=== PATIENT | female | born 1945 | race Caucasian/White ===

== ENCOUNTER 2017-03-24 21:04 | Inpatient (IN) | payer MEDICARE, OTHER ==
[~2017-03-24] VITALS: Ht 152.4 cm; Wt 73.9 kg
--- NOTE | 2017-03-24 21:10 | NUR ---
TO BED 3 BIB PARAMEDICS FROM [facility] C/O SOB 40 MINS HOSPICE MUSIC THERAPY, 02 91%. PT WAS GIVEN HHN TX BY EMS HOSPICE MUSIC THERAPY. 02 SAT 98% ON 2L/NC. PT NONVERBAL, AAOX1, NO ACUTE DISTRESS NOTED, RESP EVEN AND UNLABORED. RHONCHI HEARD BILATERALLY ON AUSCULTATION. PLACE PT ON CARDAIC MONITORING, CONTINUOUS POX, O2@2L/NC. SL 20G TO L HAND. PENDING ER MD MARTINEZ.
[2017-03-24] MEDS ORDERED: IPRATROPIUM NEB FS 0.5 MG/2.5 ML AMPUL.NEB NEB ONE (22:30)
[2017-03-24] MEDS ORDERED: ALBUTEROL FS 2.5 MG/3 ML VIAL.NEB CONTNEB ONE (22:30)
[2017-03-24] MEDS ORDERED: LEVOFLOXACIN 750 MG /D5W 150ML 150 ML IV ONE (22:30)
[2017-03-24 22:37] LABS: BASOPHILS # (AUTO) 0.7 /CMM (0.0-0.2); BASOPHILS % (AUTO) 4.5 % (0.0-2.0); EOSINOPHILS # (AUTO) 0.3 /CMM (0.0-0.7); EOSINOPHILS % (AUTO) 1.8 % (0.0-6.0); HEMATOCRIT 37 % (33-45); HEMOGLOBIN 12.1 g/dL (11.5-14.8); LYMPHOCYTES # (AUTO) 1.5 /CMM (0.8-4.8); LYMPHOCYTES % (AUTO) 9.8 % (20.0-44.0); MEAN CORPUSCULAR HEMOGLOBIN 30 PG (26.0-33.0); MEAN CORPUSCULAR HGB CONC 33 g/dl (31.0-36.0); MEAN CORPUSCULAR VOLUME 90 fL (82-100); MONOCYTES # (AUTO) 0.7 /CMM (0.1-1.30); MONOCYTES % (AUTO) 4.7 % (2.0-12.0); NEUTROPHILS # (AUTO) 11.7 /CMM (1.8-8.9); NEUTROPHILS % (AUTO) 79.2 % (43.0-81.0); PLATELET COUNT (AUTO) 381 /CMM (150-450); RDW COEFFICIENT OF VARIATION 13.3 (11.5-15.0); RED BLOOD CELL COUNT(AUTO) 4.09 MIL/uL (4.0-5.2); WHITE BLOOD COUNT (AUTO) 14.9 K/uL (4.3-11.0)
--- NOTE | 2017-03-24 22:56 | NUR ---
RT AT BEDSIDE TO GIVE HHN TX.
[2017-03-24] MEDS ORDERED: ALBUTEROL FS 2.5 MG/3 ML VIAL.NEB ONE (22:59)
[2017-03-24] MEDS ORDERED: IPRATROPIUM NEB FS 0.5 MG/2.5 ML AMPUL.NEB ONE (22:59)
[2017-03-24 23:06] LABS: CALCIUM, SERUM 9.1 mg/dL (8.5-10.1); CREATININE 0.8 mg/dL (0.6-1.3); POTASSIUM 4.3 mmol/L (3.5-5.1)
--- NOTE | 2017-03-24 23:38 | NUR ---
ATTEMPTED TO CALL [facility], PHONE JUST KEPT RINGING, NO ANSWER.
--- NOTE | 2017-03-25 00:13 | NUR ---
REPORT CALLED TO M/S ASIA CHOWDHURY. WILL TRANSPORT PT TO ROOM 201.
[2017-03-25 01:00] VITALS: BP 131/75
--- NOTE | 2017-03-25 01:00 | NUR ---
MS TELEPHONE QUOTATION CLERK NOTES ADMITTED THIS 71 Y.O. FEMALE,DEMENTED FROM [facility] TO ER DUE SOB,O2 SAT 91%.NOTED SKIN TEAR ON RIGHT POSTERIOR THIGH,MULTIPLE SKIN TAGS NOTED.WITH GT CLAMPED AT THE MOMENT.GT FLUSHED WITH H2O AND KEPT CLAMPED.BED BOUND,FULL CODE STATUS WITH POLST ON CHART.WILL CONTINUE TO MONITOR STATUS.
[2017-03-25] MEDS ORDERED: BENA40TA2 (02:52)
[2017-03-25] MEDS ORDERED: PROT946L PO (02:52)
[2017-03-25] MEDS ORDERED: ACET1TAB12 PO (02:52)
[2017-03-25] MEDS ORDERED: METO50TA16 PO (02:52)
[2017-03-25] MEDS ORDERED: ALBU2.5V38 IH (02:52)
[2017-03-25] MEDS ORDERED: MULT1TAB73 PO (02:52)
[2017-03-25] MEDS ORDERED: DOCU100C36 PO (02:52)
[2017-03-25] MEDS ORDERED: ONDANSETRON HCL/PF 4 MG/2 ML VIAL IVP PRN (04:30)
[2017-03-25] MEDS ORDERED: Z GUARD REMEDY 2 OZ OINT TP PRN (04:30)
[2017-03-25] MEDS ORDERED: IPRATROPIUM NEB FS 0.5 MG/2.5 ML AMPUL.NEB NEB PRN (04:30)
[2017-03-25] MEDS ORDERED: ACETAMINOPHEN 325 MG TABLET PO PRN (04:30)
[2017-03-25] MEDS ORDERED: ENOXAPARIN SODIUM 40 MG/0.4 ML DISP.SYRIN SQ SCH ×2 (04:30→08:17)
[2017-03-25] MEDS ORDERED: ALBUTEROL HALF STRENGTH 1.25 MG/3 ML VIAL.NEB NEB PRN (04:30)
[2017-03-25] MEDS ORDERED: HYDROCODONE/APAP 5/325MG 1 EACH TABLET PO PRN (04:30)
[2017-03-25] MEDS ORDERED: ZOLPIDEM TARTRATE 5 MG TABLET PO PRN (04:30)
[2017-03-25] MEDS ORDERED: ENOXAPARIN SODIUM 40 MG/0.4 ML DISP.SYRIN SQ ONE (05:08)
--- NOTE | 2017-03-25 05:14 | NUR ---
MS RN NOTES STARTED ON LOVENOX 40MG SQ ORDERED FOR DVT PROPHYLAXIS.
[2017-03-25] MEDS: FIBERSOURCE HN 1,000 ML BOTTLE GT PRN ×2 (05:53→16:10)
--- NOTE | 2017-03-25 06:00 | NUR ---
MS RN NOTES STARTED ON GT FEEDING FIBERSOURCE AT 65ML/HR RATE X 16 HOURS TO YIELD 1040 DOSE,ON AT 6AM,OFF AT 2200
--- NOTE | 2017-03-25 06:37 | NUR ---
MS RN NOTES REMAINS LETHARGIC,AROUSABLE TO TACTILE STIMULI,BREATHING NON LABORED.O2 IN USED TO KEEP O2 SAT ABOVE 90A5.REPOSITION TO COMFORT.NEEDS ATTENDED.WILL ENDORSE TO DAY NURSE FOR WOOD.
--- NOTE | 2017-03-25 07:00 | NUR ---
RN NOTES: PATIENT AOX1, NONVERBAL, NO FACIAL GRIMACING NOTED. PATIENT ON 2 L NASAL CANNULA. NO SIGNS OF DISTRESS NOTED. IV ON LEFT HAND , 20, PATENT AND INTACT. BED IN LOWEST LOCKED POSITION. CALL LIGHT WITHIN REACH. WILL CONTINUE TO MONITOR
[2017-03-25 08:00] VITALS: BP 122/74
[2017-03-25 09:10] LABS: CALCIUM, SERUM 8.8 mg/dL (8.5-10.1); CREATININE 0.9 mg/dL (0.6-1.3); MAGNESIUM 2.4 mg/dL (1.8-2.4); PHOSPHORUS 4.5 mg/dL (2.5-4.9); POTASSIUM 4.5 mmol/L (3.5-5.1)
[2017-03-25 09:11] LABS: EOSINOPHILS # (AUTO) 0.3 /CMM (0.0-0.7); EOSINOPHILS % (AUTO) 2.4 % (0.0-6.0); HEMATOCRIT 33 % (33-45); HEMOGLOBIN 11.2 g/dL (11.5-14.8); LYMPHOCYTES # (AUTO) 1.2 /CMM (0.8-4.8); LYMPHOCYTES % (AUTO) 10.1 % (20.0-44.0); MEAN CORPUSCULAR HEMOGLOBIN 31 PG (26.0-33.0); MEAN CORPUSCULAR HGB CONC 34 g/dl (31.0-36.0); MEAN CORPUSCULAR VOLUME 90 fL (82-100); MONOCYTES # (AUTO) 0.6 /CMM (0.1-1.30); NEUTROPHILS # (AUTO) 9.9 /CMM (1.8-8.9); NEUTROPHILS % (AUTO) 82.5 % (43.0-81.0); PLATELET COUNT (AUTO) 308 /CMM (150-450); RDW COEFFICIENT OF VARIATION 12.9 (11.5-15.0); RED BLOOD CELL COUNT(AUTO) 3.64 MIL/uL (4.0-5.2)
[2017-03-25] MEDS: MULTIVITAMINS,THERAGRAN 1 UDTAB TABLET PO SCH (09:57)
[2017-03-25] MEDS: METOPROLOL TARTRATE 50 MG TABLET PO SCH ×2 (09:58→16:05)
[2017-03-25] MEDS: ASPIRIN 81 MG TAB.CHEW PO SCH (09:59)
[2017-03-25] MEDS: PROSOURCE / PROSTAT (PYXIS) 30 ML UDC PO SCH (10:01)
[2017-03-25] MEDS: BENAZEPRIL HCL 20 MG TABLET PO SCH (11:09)
--- NOTE | 2017-03-25 13:29 | NUR ---
RN NOTES: CHUCK VICTORIA NP, ORDERED STRAIGHT CATHETER TO OBTAIN URINE SPECIMEN FOR A UA AND CS
[2017-03-25] MEDS: ALBUTEROL HALF STRENGTH 1.25 MG/3 ML VIAL.NEB NEB SCH ×3 (13:49→19:43)
[2017-03-25] MEDS: IPRATROPIUM NEB FS 0.5 MG/2.5 ML AMPUL.NEB NEB SCH ×3 (13:50→19:43)
[2017-03-25 16:00] VITALS: BP 114/68
--- NOTE | 2017-03-25 18:00 | NUR ---
RN NOTES: URINE COLLECTED PICKED UP BY LAB DURING SHIFT, PENDING RESULTS
[2017-03-25 19:05] LABS: APPEARANCE,URINE CLEAR (CLEAR); BILIRUBIN,URINE NEGATIVE (NEGATIVE); BLOOD, URINE TRACE-INTA Ery/uL (NEGATIVE); COLOR,URINE YELLOW (YELLOW); KETONES,URINE NEGATIVE (NEGATIVE); LEUKOCYTE ESTERASE ,URINE 3+ (NEGATIVE); NITRITE, URINE NEGATIVE (NEGATIVE); PH,URINE 7.5 (5.0-8.0); PROTEIN,URINE 1+ mg/dl (NEGATIVE); UGLUCOSE NEGATIVE (NEGATIVE); UROBILINOGEN,URINE 0.2 EU/dL (0.2)
[2017-03-25 19:22] LABS: BACTERIA,URINE 2+ /HPF (None Seen); SQUAMOUS EPITHELIAL CELL,UR Few /HPF (None Seen); WBC,URINE 51-80 /HPF (0-3)
--- NOTE | 2017-03-25 19:30 | NUR ---
RN NOTES: PATIENT AOX1, NONVERBAL, NO FACIAL GRIMACING NOTED. PATIENT ON 2 L NASAL CANNULA. NO SIGNS OF DISTRESS NOTED. IV ON LEFT HAND PATENT AND INTACT. BED IN LOWEST LOCKED POSITION. CALL LIGHT WITHIN REACH. WILL CONTINUE TO MONITOR
--- NOTE | 2017-03-25 19:30 | NUR ---
MS2/RN RECEIVE PATIENT APPEAR SLEEPING, COMFORTABLE, BREATHING EVEN AND UNLABORED, NO DISTRESS NOTED, GT FEEDING INFUSING WELL, NO RESIDUAL NOTED, HOB ELEVATED. CALL LIGHT IN REACH. WILL MONITOR.
--- NOTE | 2017-03-25 19:32 | NUR ---
RN NOTES: PATIENT AOX1, NONVERBAL, NO FACIAL GRIMACING NOTED. PATIENT ON 2 L NASAL CANNULA. NO SIGNS OF DISTRESS NOTED. IV ON LEFT HAND PATENT AND INTACT. BED IN LOWEST LOCKED POSITION. CALL LIGHT WITHIN REACH. PATIENT TURNED AND REPOSITIONED EVERY 2 HOURS. KEPT CLEAN AND DRY DURING SHIFT. ENDORSED TO NEXT SHIFT
[2017-03-25 20:00] VITALS: BP 93/55
[2017-03-25] MEDS: ATORVASTATIN 10 MG TABLET PO SCH (21:42)
--- NOTE | 2017-03-25 22:39 | NUR ---
MS2/RN NURSING CARE RENDERED. TOTAL LINEN CARE DONE. REPOSITIONED TO COMFORT. TUBE FEEDING STOPPED AT 22:00 PER ORDER. WILL CONTINUE TO MONITOR.
[2017-03-26] MEDS: FIBERSOURCE HN 1,000 ML BOTTLE GT PRN (05:48)
--- NOTE | 2017-03-26 06:22 | NUR ---
MS2/RN PATIENT IS AWAKE AT THIS TIME, NONVERBAL, APPEAR COMFORTABLE, NO SIGNS OF DISTRESS NOTED, GT FEEDING WAS STARTED AT 06:00 PER ORDER, HOB ELEVATED ALL NEEDS ATTENDED AT THIS TIME, WILL CONTINUE TO MONITOR.
[2017-03-26] MEDS: IPRATROPIUM NEB FS 0.5 MG/2.5 ML AMPUL.NEB NEB SCH ×4 (07:36→21:56)
[2017-03-26] MEDS: ALBUTEROL HALF STRENGTH 1.25 MG/3 ML VIAL.NEB NEB SCH ×4 (07:37→21:56)
--- NOTE | 2017-03-26 07:39 | NUR ---
MS/RN Patient [id number] Patient received from food and beverage checker. Awake, non verbal, in no distress. Side rails X3 in upright position, call light within reach. Will continue to monitorand ensure safety.
[2017-03-26 07:53] LABS: EOSINOPHILS # (AUTO) 0.5 /CMM (0.0-0.7); EOSINOPHILS % (AUTO) 4.3 % (0.0-6.0); HEMATOCRIT 33 % (33-45); HEMOGLOBIN 11.3 g/dL (11.5-14.8); LYMPHOCYTES # (AUTO) 1.3 /CMM (0.8-4.8); LYMPHOCYTES % (AUTO) 11.1 % (20.0-44.0); MEAN CORPUSCULAR HEMOGLOBIN 31 PG (26.0-33.0); MEAN CORPUSCULAR HGB CONC 34 g/dl (31.0-36.0); MEAN CORPUSCULAR VOLUME 90 fL (82-100); MONOCYTES # (AUTO) 0.6 /CMM (0.1-1.30); MONOCYTES % (AUTO) 5.2 % (2.0-12.0); NEUTROPHILS # (AUTO) 9.6 /CMM (1.8-8.9); NEUTROPHILS % (AUTO) 79.4 % (43.0-81.0); PLATELET COUNT (AUTO) 316 /CMM (150-450); RDW COEFFICIENT OF VARIATION 12.8 (11.5-15.0); RED BLOOD CELL COUNT(AUTO) 3.62 MIL/uL (4.0-5.2)
[2017-03-26 08:00] VITALS: BP 118/69
[2017-03-26] MEDS: ASPIRIN 81 MG TAB.CHEW PO SCH (08:06)
[2017-03-26] MEDS: PROSOURCE / PROSTAT (PYXIS) 30 ML UDC PO SCH (08:06)
[2017-03-26] MEDS: MULTIVITAMINS,THERAGRAN 1 UDTAB TABLET PO SCH (08:06)
[2017-03-26] MEDS: METOPROLOL TARTRATE 50 MG TABLET PO SCH ×2 (08:07→16:39)
[2017-03-26] MEDS: BENAZEPRIL HCL 20 MG TABLET PO SCH (08:07)
[2017-03-26] MEDS: ENOXAPARIN SODIUM 40 MG/0.4 ML DISP.SYRIN SQ SCH (08:07)
[2017-03-26 08:28] LABS: CREATININE 0.9 mg/dL (0.6-1.3)
--- NOTE | 2017-03-26 09:00 | NUR ---
MS/RN Medications Morning medications administered via GT.
[2017-03-26 09:07] LABS: POTASSIUM 4.1 mmol/L (3.5-5.1)
--- NOTE | 2017-03-26 10:11 | NUR ---
MS/RN ADL's Morning care provided to patient. Skin kept clean and dry, will be turned and repositioned every 2-3 hours throughout the shift to prevent skin breakdown.
[2017-03-26] MEDS ORDERED: PETROLATUM,WHITE PACKET 5 GM PACKET TP PRN (10:30)
[2017-03-26 10:38] LABS: ABG BASE EXCESS 2.8 mmol/L; ABG OXYGEN SATURATION 97.3 % (92.0-98.5); ABG PCO2 35.8 mmHg (35.0-45.0); ABG PH 7.481 (7.350-7.450); ABG PO2 102.1 mmHg (75.0-100.0); AaDO2 62.5 mmHg; COHb 0.3 % (0.5-1.5); MetHb 0.5 % (0.0-1.5); O2Hb 96.5 % (94.0-97.0); SITE, ABG Right Radial; VENT MODE, BG nasal cannula
--- NOTE | 2017-03-26 11:52 | NUR ---
MS/RN S/B Damian Hutchinson Seen by FOUNTAIN WORKER - rocephin q24 hours ordered for UTI.
[2017-03-26] MEDS: CEFTRIAXONE 1 G in IV D5W 50 ML IV SCH (13:26)
[2017-03-26 16:00] VITALS: BP 122/64
--- NOTE | 2017-03-26 18:24 | NUR ---
MS/RN End note No changes in care at this time. Rocephin infused as ordered, no reaction noted. Skin kept clean and dry, turned and repositioned every 2-3 hours. GT feeding infusing at 65ml/hr, no residual. Will endorse to woodwind instruments inspector.
[2017-03-26 20:00] VITALS: BP 116/67
--- NOTE | 2017-03-26 20:00 | NUR ---
RN NOTES RECEIVED PATIENT IN BED, ALERT AND AWAKE, NON-VERBAL, CALM, NO RESPIRATORY DISTRESS, TOLERATING 2LPM VIA NC, SPO2 97%, NOT IN APPARENT PAIN, NO FACIAL GRIMACING, ABDOMEN SOFT AND NON-TENDER, ACTIVE BOWEL SOUNDS, GT FEEDING INFUSING WELL, ON AUSCULTATED, POSITIVE PLACEMENT, NO RESIDUAL. FLUSHED. KEPT HOB ELEVATED, KEPT SAFE AND COMFORTABLE, CALL LIGHT WITHIN REACH.
[2017-03-26] MEDS: ATORVASTATIN 10 MG TABLET PO SCH (21:24)
--- NOTE | 2017-03-26 22:29 | NUR ---
RN NOTE GAVE REPORT TO SKYLER FOR WOOD, PATIENT WILL BE TRANSFERRED TO ROOM 204
--- NOTE | 2017-03-26 22:32 | NUR ---
RN NOTES Pt ARRIVED TO FLOOR. NO S/S OF ACUTE DISTRESS OR SOB NOTED. Pt IS ASLEEP WITH EQUAL CHEST RISE AND FALL. SAFETY MEASURES IN PLACE. BED LOW, LOCKED, HOB ELEVATED, SIDE RAILS UP, BED ALARM ON. GT FEEDING OFF. WILL CONTINUE TO MONITOR Pt THROUGHOUT THE NIGHT FOR SAFETY.
[2017-03-27] MEDS: FIBERSOURCE HN 1,000 ML BOTTLE GT PRN (06:16)
--- NOTE | 2017-03-27 06:30 | NUR ---
RN CLOSING NOTES NO SIGNIFICANT CHANGES IN Pt's CONDITION. Pt REMAINS STABLE AT THIS TIME. NO S/S OF ACUTE DISTRESS OR SOB NOTED DURING THE NIGHT. ALL NEEDS MET AND ATTENDED TO. SAFETY MEASURES IN PLACE. WILL ENDORSE TO DAYSHIFT RN FOR Pt's WOOD.
[2017-03-27 06:56] LABS: EOSINOPHILS # (AUTO) 0.6 /CMM (0.0-0.7); EOSINOPHILS % (AUTO) 4.6 % (0.0-6.0); HEMATOCRIT 34 % (33-45); HEMOGLOBIN 11.8 g/dL (11.5-14.8); LYMPHOCYTES # (AUTO) 1.3 /CMM (0.8-4.8); MEAN CORPUSCULAR HEMOGLOBIN 31 PG (26.0-33.0); MEAN CORPUSCULAR HGB CONC 34 g/dl (31.0-36.0); MEAN CORPUSCULAR VOLUME 90 fL (82-100); MONOCYTES # (AUTO) 0.5 /CMM (0.1-1.30); MONOCYTES % (AUTO) 4.1 % (2.0-12.0); NEUTROPHILS # (AUTO) 9.8 /CMM (1.8-8.9); NEUTROPHILS % (AUTO) 80.3 % (43.0-81.0); PLATELET COUNT (AUTO) 352 /CMM (150-450); RDW COEFFICIENT OF VARIATION 12.9 (11.5-15.0); RED BLOOD CELL COUNT(AUTO) 3.82 MIL/uL (4.0-5.2); WHITE BLOOD COUNT (AUTO) 12.2 K/uL (4.3-11.0)
[2017-03-27 07:12] LABS: CREATININE 0.8 mg/dL (0.6-1.3); POTASSIUM 4.5 mmol/L (3.5-5.1)
[2017-03-27] MEDS: IPRATROPIUM NEB FS 0.5 MG/2.5 ML AMPUL.NEB NEB SCH ×4 (07:17→19:08)
[2017-03-27] MEDS: ALBUTEROL HALF STRENGTH 1.25 MG/3 ML VIAL.NEB NEB SCH ×4 (07:17→19:08)
--- NOTE | 2017-03-27 07:48 | NUR ---
MS/RN OPENING NOTE PATIENT RECEIVED IN BED AWAKE.RESPONSIVE TO VERBAL AND TACTILE STIMULI. THE PATIENT NON-VERBAL. RESPIRATION REGULAR AND UNLABORED. NO MANIFESTATION OF SOB OR PAIN NOTED. THE PATIENT IN NO APPARENT DISTRESS. ABDOMEN SOFT AND NON-DISTENDED. GT FEEDING INFUSING WELL. HOB ELEVATED TO PREVENT ASPIRATINON. SIDE RAIL X2 UP. BED LOW AND LOCKED. CALL LIGHT WITHIN REACH. WILL CONTINUE TO MONITOR.
[2017-03-27 08:00] VITALS: BP 134/78
[2017-03-27] MEDS: ASPIRIN 81 MG TAB.CHEW PO SCH (08:48)
[2017-03-27] MEDS: METOPROLOL TARTRATE 50 MG TABLET PO SCH ×2 (08:48→17:32)
[2017-03-27] MEDS: BENAZEPRIL HCL 20 MG TABLET PO SCH (08:48)
[2017-03-27] MEDS: MULTIVITAMINS,THERAGRAN 1 UDTAB TABLET PO SCH (08:48)
[2017-03-27] MEDS: ENOXAPARIN SODIUM 40 MG/0.4 ML DISP.SYRIN SQ SCH (08:57)
[2017-03-27] MEDS: PROSOURCE / PROSTAT (PYXIS) 30 ML UDC PO SCH (10:09)
[2017-03-27] MEDS: CEFTRIAXONE 1 G in IV D5W 50 ML IV SCH (13:00)
[2017-03-27 16:00] VITALS: BP 121/69
--- NOTE | 2017-03-27 18:01 | NUR ---
TELE/RN CLOSING NOTE PATIENT IN BED AWAKE, NON-VERBAL. BREATHING REGULAR AND UNLABORED. NI MANIFESTATION OF SOB, PAIN NOTED. IN NO APPARENT DISTRESS. GT FEEDING JOSHUA WELL. HOB ELEVATED TO PREVENT ASPIRATION. LEFT HAND G20 PATENT. SIDE RAIL X2 UP. BED LOW AND LOCKED. CALL LIGHT WITHIN REACH. WILL ENDORSE TO INSTRUCTOR ADJUNCT PHARMACY TECHNICIAN.
--- NOTE | 2017-03-27 19:30 | NUR ---
MS/RN OPENING NOTE PATIENT RECEIVED IN BED AWAKE.RESPONSIVE TO VERBAL AND TACTILE STIMULI. THE PATIENT NON-VERBAL. RESPIRATION REGULAR AND UNLABORED. NO MANIFESTATION OF SOB OR PAIN NOTED. THE PATIENT IN NO APPARENT DISTRESS. ABDOMEN SOFT AND NON-DISTENDED. GT FEEDING INFUSING WELL. HOB ELEVATED TO PREVENT ASPIRATION. SIDE RAIL X2 UP. BED LOW AND LOCKED. CALL LIGHT WITHIN REACH. WILL CONTINUE TO MONITOR.
[2017-03-27 20:00] VITALS: BP_SYST 121; BP_SYST 139; BP_DIAS 69; BP_DIAS 79
--- NOTE | 2017-03-27 21:45 | NUR ---
MS RN NOTE RECEIVED REPORT FROM DRU BETANCOURT FOR CONTINUITY OF CARE. NO ACUTE DISTRESS NOTED. HOB ELEVATED. GTUBE FEEDING WELL TOLERATED WITHOUT RESIDUALS NOTED. ON ASPIRATION PRECAUTIONS. IV IN PLACE AND PATENT. CALL LIGHT WITHIN REACH. WILL CONTINUE TO MONITOR.
[2017-03-27] MEDS: ATORVASTATIN 10 MG TABLET PO SCH (22:25)
[2017-03-28] MEDS: FIBERSOURCE HN 1,000 ML BOTTLE GT PRN (05:40)
[2017-03-28 06:44] LABS: BASOPHILS % (AUTO) 0.3 % (0.0-2.0); EOSINOPHILS # (AUTO) 0.5 /CMM (0.0-0.7); EOSINOPHILS % (AUTO) 4.1 % (0.0-6.0); HEMATOCRIT 34 % (33-45); HEMOGLOBIN 11.6 g/dL (11.5-14.8); LYMPHOCYTES # (AUTO) 1.1 /CMM (0.8-4.8); LYMPHOCYTES % (AUTO) 9.6 % (20.0-44.0); MEAN CORPUSCULAR HEMOGLOBIN 31 PG (26.0-33.0); MEAN CORPUSCULAR HGB CONC 34 g/dl (31.0-36.0); MEAN CORPUSCULAR VOLUME 92 fL (82-100); MONOCYTES # (AUTO) 0.4 /CMM (0.1-1.30); MONOCYTES % (AUTO) 3.2 % (2.0-12.0); NEUTROPHILS # (AUTO) 9.6 /CMM (1.8-8.9); NEUTROPHILS % (AUTO) 82.8 % (43.0-81.0); PLATELET COUNT (AUTO) 323 /CMM (150-450); RDW COEFFICIENT OF VARIATION 13.5 (11.5-15.0); RED BLOOD CELL COUNT(AUTO) 3.69 MIL/uL (4.0-5.2); WHITE BLOOD COUNT (AUTO) 11.6 K/uL (4.3-11.0)
--- NOTE | 2017-03-28 07:34 | NUR ---
MS RN CLOSING NOTE PT REMAINED STABLE DURING SHIFT. NO ACUTE DISTRESS NOTED. HOB REMAINED ELEVATED. NO RESIDUALS NOTED. ALL NEEDS ATTENDED TO PROMPTLY. KEPT CLEAN AND DRY. REPOSITIONED Q2H. WILL ENDORSE TO NEXT SHIFT FOR CONTINUITY OF CARE.
[2017-03-28] MEDS: IPRATROPIUM NEB FS 0.5 MG/2.5 ML AMPUL.NEB NEB SCH ×2 (07:43→11:30)
[2017-03-28] MEDS: ALBUTEROL HALF STRENGTH 1.25 MG/3 ML VIAL.NEB NEB SCH ×2 (07:43→11:30)
[2017-03-28 08:00] VITALS: BP 134/78
--- NOTE | 2017-03-28 08:00 | NUR ---
RN OPENING NOTE RECEIVED IN BED AWAKE,RESPONSE TO VERBAL AND TACTILE STIMULI ,NON-VERBAL. NO ACUTE DISTRESS NOTED. RESPIRATION REGULAR AND UNLABORED. NO SOB.NO FACIAL GRIMACING NOTED. GT FEEDING INFUSING WELL. HOB ELEVATED . SAFETY MEASURES IN PLACE. SIDE RAIL X2 UP. BED LOW AND LOCKED. CALL LIGHT WITHIN REACH. WILL CONTINUE TO MONITOR ACCORDINGLY..
[2017-03-28] MEDS: ASPIRIN 81 MG TAB.CHEW PO SCH (09:34)
[2017-03-28 09:37] VITALS: BP 134/78
[2017-03-28] MEDS: BENAZEPRIL HCL 20 MG TABLET PO SCH (09:37)
[2017-03-28] MEDS: METOPROLOL TARTRATE 50 MG TABLET PO SCH (09:37)
[2017-03-28] MEDS: MULTIVITAMINS,THERAGRAN 1 UDTAB TABLET PO SCH (09:37)
[2017-03-28] MEDS: PROSOURCE / PROSTAT (PYXIS) 30 ML UDC PO SCH (09:38)
[2017-03-28] MEDS: ENOXAPARIN SODIUM 40 MG/0.4 ML DISP.SYRIN SQ SCH (09:40)
[2017-03-28] MEDS ORDERED: CEPH-570 PO (10:42)
[2017-03-28] MEDS ORDERED: Fibersource Hn GT (10:42)
[2017-03-28] MEDS: CEFTRIAXONE 1 G in IV D5W 50 ML IV SCH (12:51)
--- NOTE | 2017-03-28 14:00 | NUR ---
SCRATCHER NOTES DISCHARGED PATIENT IN STABLE CONDITION. NO SOB NOTED. NO SIGN OF ACUTE DISTRESS NOTED. DISCHARGED INSTRUCTIONS GIVEN. REPORT GIVEN TO FABIANASOR COSTA. PICKED UP BY 2 EMT PERSONNEL IN A [facility], DISCHARGE PAPERS HANDED OVER TO EMT PERSONNEL. ALL BELONGINGS ACCOUNTED FOR. IV ACCESS REMOVED, NO BLEEDING OR SWELLING.
== END 2017-03-28 14:00 | DRG 871 ==
LOC: ER 21:05 → MEDSG2 03-25 00:50 → MED 03-26 22:49
PROVIDERS: ADMIT Nurse Practitioner Acute Care; ATTEND Nurse Practitioner Acute Care
DX: A41.9 Sepsis, unspecified organism (principal); J96.90 Respiratory failure, unspecified, unspecified whether with hypoxia or hypercapnia; N17.0 Acute kidney failure with tubular necrosis; G93.49 Other encephalopathy; R13.10 Dysphagia, unspecified; D68.59 Other primary thrombophilia; I69.351 Hemiplegia and hemiparesis following cerebral infarction affecting right dominant side; N39.0 Urinary tract infection, site not specified; I50.9 Heart failure, unspecified; I11.0 Hypertensive heart disease with heart failure; E66.01 Morbid (severe) obesity due to excess calories; I70.0 Atherosclerosis of aorta; E86.0 Dehydration; E78.5 Hyperlipidemia, unspecified; F03.90 Unspecified dementia, unspecified severity, without behavioral disturbance, psychotic disturbance, mood disturbance, and anxiety; Z93.1 Gastrostomy status; L89.90 Pressure ulcer of unspecified site, unspecified stage; F09 Unspecified mental disorder due to known physiological condition; Z68.31 Body mass index [BMI] 31.0-31.9, adult; B96.4 Proteus (mirabilis) (morganii) as the cause of diseases classified elsewhere; Z79.899 Other long term (current) drug therapy
CPT/HCPCS: 36415; 36600; 71010-TC; 71045; 80048-TC; 80061-TC; 81000-TC; 82803-TC; 83605-TC; 83735-TC; 84100-TC; 85025-TC; 87040-TC; 87081-TC; 87086-TC; 87186-TC; 87400; 93970-TC; 94799-TC; J0696; J1650; J7030; J7060